=== PATIENT | female | born 1960 | race Caucasian/White ===

== ENCOUNTER 2016-07-23 00:27 | Emergency (ER) | payer SELFPAY ==
[2016-07-23] MEDS ORDERED: ASPIRIN 81 MG TABLET, CHEWABLE PO ONE (00:34)
[2016-07-23] MEDS ORDERED: NITROGLYCERIN 0.4 MG/TAB 25 TAB/BOTTLE SL PRN (00:58)
--- NOTE | 2016-07-23 01:00 | ER Document Report ---
ED General - General TRAVEL OUTSIDE OF THE [place] IN LAST 30 DAYS: No <LINDA KIRKLAND - Last Filed: 07/23/16 06:51> <NANDA ANGEL - Last Filed: 07/23/16 09:22> - General Chief Complaint: Chest Pain > 30 Stated Complaint: CHEST PAIN Notes: Patient is a pleasant 56-year-old female presents with complaint of pain in her chest. Pain is substernal and radiates to her back and her left shoulder. She says this pain feels exactly like her first heart attack. Last [place] she had was 2013. She's had 2 stents. Her last heart catheter was in 2013. She's followed by [facility] by Dr. Pierre Sherman. No vomiting. No difficulty breathing. No fevers. No abdominal pain. No weakness or numbness into the extremities. Pain started approximately 30 minutes prior to arrival. Patient says pain did start after an argument with a neighbor. (LINDA KIRKLAND) - Related Data Allergies/Adverse Reactions: azithromycin [From Zithromax] Allergy (Intermediate, Verified 03/24/11 15:33) Penicillins Allergy (Intermediate, Verified 03/24/11 15:33) narcotics Allergy (Intermediate, Uncoded 03/24/11 15:35) Past Medical History - Social History Smoking Status: Never Smoker Chew tobacco use (# tins/day): No Frequency of alcohol use: None Drug Abuse: None Family History: Reviewed & Not Pertinent Patient has suicidal ideation: No Patient has homicidal ideation: No - Past Medical History Cardiac Medical History: Reports: Hx Heart Attack, Hx Hypercholesterolemia, Hx Hypertension Pulmonary Medical History: Denies: Hx Tuberculosis Endocrine Medical History: Reports: Hx Hypothyroidism Renal/ Medical History: Reports: Hx Ovarian Cysts. Denies: Hx Peritoneal Dialysis GI Medical History: Reports: Hx Ulcer Traumatic Medical History: Reports: Hx Fractures - Right wrist. Past Surgical History: Reports: Hx Appendectomy, Hx Cardiac Catheterization, Hx Cardiac Surgery - Cardiac stents x2, 3 years ago., Hx Hysterectomy. Denies: Hx Pacemaker - Immunizations Hx Diphtheria, Pertussis, Tetanus Vaccination: No <LINDA KIRKLAND - Last Filed: 07/23/16 06:51> Review of Systems <LINDA KIRKLAND - Last Filed: 07/23/16 06:51> <NANDA ANGEL - Last Filed: 07/23/16 09:22> - Review of Systems Notes: My Normal Review Basic REVIEW OF SYSTEMS: CONSTITUTIONAL : Denies fever, chills, or sweats. Denies recent illness. EENT: Denies eye, ear, throat, or mouth pain or symptoms. Denies nasal or sinus congestion. CARDIOVASCULAR: Has chest pain RESPIRATORY: Denies cough, cold, or chest congestion. Denies shortness of breath, difficulty breathing, or wheezing. GASTROINTESTINAL: Denies abdominal pain. Denies nausea, vomiting, or diarrhea. Denies constipation. Last BM: MUSCULOSKELETAL: Denies neck or back pain or joint pain or swelling. SKIN: Denies rash or skin lesions. NEUROLOGICAL: Denies altered mental status or loss of consciousness. Denies headache. Denies weakness or paralysis or loss of use of either side. Denies problems with gait or speech. Denies sensory or motor loss. ALL OTHER SYSTEMS REVIEWED AND NEGATIVE. (LINDA KIRKLAND) Physical Exam <LINDA KIRKLAND - Last Filed: 07/23/16 06:51> <NANDA ANGEL - Last Filed: 07/23/16 09:22> - Vital signs Vitals: Temp Pulse Resp BP Pulse Ox 97.7 F 64 24 H 173/90 H 100 07/23/16 00:29 07/23/16 00:29 07/23/16 00:29 07/23/16 00:29 07/23/16 00:29 - Notes Notes: General Appearance: Well nourished, alert, cooperative, no acute distress, moderate obvious discomfort. Vitals: reviewed, See vital signs table. Head: no swelling or tenderness to the head Eyes: PERRL, EOMI, Conjuctiva clear Mouth: No decreasd moisture Neck: Supple, no neck tenderness, Lungs: No wheezing, No rales, No rhonci, No accessory muscle use, good air exchange bilaterally. Heart: Normal rate, Regular rythm, No murmur, no rub Abdomen: Normal BS, soft, No rigidity, No abdominal tenderness, No guarding, no rebound, no abdominal masses, no organomegaly Extremities: strength 5/5 in all extremities, good pulses in all extremities, no swelling or tenderness in the extremities, no edema. Skin: warm, dry, appropriate color, no rash Neuro: speech clear, oriented x 3, normal affect, responds appropriately to questions. (LINDA KIRKLAND) Course - Laboratory Result Diagrams: 07/23/16 01:00 07/23/16 01:00 <LINDA KIRKLAND - Last Filed: 07/23/16 06:51> - Laboratory Result Diagrams: 07/23/16 01:00 07/23/16 01:00 <NANDA ANGEL - Last Filed: 07/23/16 09:22> - Re-evaluation Re-evalutation: 07/23/16 01:56 Patient was given 1 sublingual nitroglycerin. Because her blood pressure to drop. Her blood pressure responded well to IV fluids. She still has lot chest pain. She is allergic to opiate medications. I'm still concerned with her chest pain and her history of cardiac disease. Her initial troponin is negative however her pain pain started 30 minutes prior to her blood drawn therefore expect her troponin to be negative regardless. I will try half an inch of Nitropaste. Will watch her closely. We'll see if this helps her pain without causing her blood pressure to drop since it would be a much smaller amount than the sublingual nitroglycerin. 07/23/16 05:46 Despite the Nitropaste patient continues to have some chest pain. She cannot have opiates. She says she is allergic to opiates as a cause difficulty breathing and swelling. Did repeat a second EKG. She has some T-wave inversions. She has no ST segment elevation or depression. I did call [facility] and spoke with the hospitalist request a repeat troponin before he accepts the patient for transfer. I will also obtain a third EKG being that patient continues to have pain that I unfortunately do not have a way of controlling at this time. 07/23/16 06:38 Patient's troponin has elevated to 0.058. We will give her Lovenox. She is a very had aspirin. I did speak again with the hospitalist, Dr. Blackman, agrees to accept the patient for transfer. We will continue the Nitropaste at a half an inch as it is helping her chest pain some. Her chest pain is now down to a level of 2 on the pain score. Her blood pressures in the low 100s systolic. I will not give her beta kaylie being that her heart rate is in the 50s. 07/23/16 06:51 Dictation of this chart was performed using voice recognition software; therefore, there may be some unintended grammatical errors. (LINDA KIRKLAND) 07/23/16 08:43 Notified of nursing staff the patient is complaining of more chest pain. Patient's blood pressure has increased. Otherwise patient looks to be resting comp W. EKG was performed showing no changes from the first no signs of acute STEMI. Patient did have a significant lowering of her blood pressure with sublingual nitroglycerin and apparently is allergic to all narcotics. At this time we will add on another half inch of Nitropaste. I will also repeat a troponin at this time. Patient scheduled to leave the ER around 9:30. 07/23/16 09:22 Patient currently stable for transport to tertiary care facility (NANDA ANGEL) - Vital Signs Vital signs: Temp Pulse Resp BP Pulse Ox 97.7 F 64 17 119/76 99 07/23/16 07:04 07/23/16 00:29 07/23/16 08:01 07/23/16 08:01 07/23/16 08:01 - Laboratory Laboratory results interpreted by me: 07/23/16 07/23/16 01:00 07:45 Carbon Dioxide 32 H Est GFR (Non-Af Amer) 55 L Calcium 10.7 H Albumin 5.3 H Urine Ascorbic Acid 20 H - EKG Interpretation by Me Additional EKG results interpreted by me: 07/23/16 00:58 EKG is reviewed and interpreted by me. EKG shows sinus bradycardia with a rate of [address] segment elevation or depression. Some T-wave flattening and inversion in the lateral leads. ND interval, QRS duration, QTC intervals are within normal range. Old EKG for comparison is from 04/27/2014. 07/23/16 03:18 EKG #2 reviewed and interpreted by me. EKG shows sinus rhythm with rate of [address] segment elevation or depression. Continued T wave flattening and inversions in the lateral leads. Your level, QRS duration, QTC intervals are within normal range. 07/23/16 03:19 07/23/16 05:59 EKG #3 is reviewed and interpreted by me. EKG shows sinus rhythm with rate of 58 bpm. EKG shows T-wave inversions in leads 1 and aVL and V6. No ST segment elevation or depression. ND interval, QRS duration are within normal range. QTc interval is borderline. (LINDA KIRKLAND) Discharge <LINDA KIRKLAND - Last Filed: 07/23/16 06:51> <NANDA ANGEL - Last Filed: 07/23/16 09:22> - Discharge Clinical Impression: Chest pain Qualifiers: Chest pain type: unspecified Qualified Code(s): R07.9 - Chest pain, unspecified Condition: Stable Disposition: COUNT INCLUDES THE [facility]
[2016-07-23 01:09] LABS: ABSOLUTE EOSINOPHILS # (AUTO) 0.2 10^3/uL (0.0-0.6); ABSOLUTE LYMPHOCYTES (AUTO) 1.9 10^3/uL (0.5-4.7); ABSOLUTE MONOCYTES (AUTO) 0.7 10^3/uL (0.1-1.4); ABSOLUTE NEUT (AUTO) 6.5 10^3/uL (1.7-8.2); BASOPHILS % (AUTO) 0.5 % (0-2); HEMATOCRIT 44.1 % (36.0-47.0); HEMOGLOBIN 14.8 g/dL (12.0-15.5); HGB HCT DIFFERENCE 0.3; LYMPHOCYTES % (AUTO) 20.9 % (13-45); MEAN CORPUSCULAR HEMOGLOBIN 29.9 pg (27.0-33.4); MEAN CORPUSCULAR HGB CONC 33.6 g/dL (32.0-36.0); MEAN CORPUSCULAR VOLUME 89 fl (80-97); MONOCYTES % (AUTO) 7.3 % (3-13); RED BLOOD COUNT 4.96 10^6/uL (3.72-5.28); RED CELL DISTRIBUTION WIDTH 13.3 % (11.5-14.0); SEGMENTED NEUTROPHILS % (AUTO) 69.3 % (42-78); WHITE BLOOD COUNT 9.3 10^3/uL (4.0-10.5)
[2016-07-23] MEDS ORDERED: NORMAL SALINE 1000 ML 1,000 ML IV ONE (01:21)
[2016-07-23 01:29] LABS: ALANINE AMINOTRANSFERASE 36 U/L (9-52); ALBUMIN 5.3 g/dL (3.5-5.0); ALKALINE PHOSPHATASE 72 U/L (38-126); ANION GAP 14 (5-19); ASPARTATE AMINO TRANSFERASE 23 U/L (14-36); BILIRUBIN,TOTAL 0.9 mg/dL (0.2-1.3); BLOOD UREA NITROGEN 20 mg/dL (7-20); CALCIUM 10.7 mg/dL (8.4-10.2); CARBON DIOXIDE 32 mmol/L (22-30); CHLORIDE 99 mmol/L (98-107); CREATINE KINASE 85 U/L (30-135); CREATININE RESULT 1.04 mg/dL (0.52-1.25); GLUCOSE 101 mg/dL (75-110); POTASSIUM 4.1 mmol/L (3.6-5.0); SODIUM 144.6 mmol/L (137-145); TOTAL PROTEIN 7.8 g/dL (6.3-8.2)
[2016-07-23 01:41] LABS: TROPONIN I < 0.012 ng/mL
[2016-07-23] MEDS ORDERED: NITROGLYCERIN 2% OINTMENT 1 GM PACKET TP ONE ×2 (01:55→08:37)
[2016-07-23] MEDS ORDERED: ENOXAPARIN SODIUM INJ 80 MG/0.8 ML DISP.SYRIN SUBCUT SCH (06:45)
[2016-07-23] MEDS ORDERED: CLOPIDOGREL BISULFATE 75 MG TABLET PO ONE (07:05)
[2016-07-23] MEDS ORDERED: ONDANSETRON HCL INJ/PF 4 MG/2 ML SDV IV PRN (08:34)
[2016-07-23] MEDS ORDERED: MORPHINE SULFATE 10 MG/ML INJ IV PRN (08:34)
[2016-07-23 09:07] LABS: APPEARANCE,URINE CLEAR; BILIRUBIN,URINE NEGATIVE (NEGATIVE); GLUCOSE, URINE NEGATIVE (NEGATIVE); KETONES,URINE NEGATIVE (NEGATIVE); LEUKOCYTE ESTERASE,URINE NEGATIVE (NEGATIVE); NITRITE,URINE NEGATIVE (NEGATIVE); PROTEIN,URINE NEGATIVE (NEGATIVE); URINE SPECIFIC GRAVITY 1.006; UROBILINOGEN,URINE NEGATIVE mg/dL (<2.0)
[2016-07-23 09:26] VITALS: BP 160/72
--- NOTE | 2016-07-23 20:16 | EKG REPORT ---
SEVERITY:- ABNORMAL ECG - SINUS BRADYCARDIA NONSPECIFIC T ABNORMALITIES, LATERAL LEADS : Confirmed by: Joel Banks 23-Jul-2016 20:15:49
--- NOTE | 2016-07-23 20:16 | EKG REPORT ---
SEVERITY:- ABNORMAL ECG - SINUS RHYTHM BORDERLINE LEFT AXIS DEVIATION ABNORMAL T, CONSIDER ISCHEMIA, LATERAL LEADS : Confirmed by: Joel Banks 23-Jul-2016 20:16:00
--- NOTE | 2016-07-23 20:17 | EKG REPORT ---
SEVERITY:- ABNORMAL ECG - SINUS RHYTHM LEFT AXIS DEVIATION ABNORMAL T, CONSIDER ISCHEMIA, LATERAL LEADS : Confirmed by: Joel Banks 23-Jul-2016 20:16:09
--- NOTE | 2016-07-23 20:17 | EKG REPORT ---
SEVERITY:- ABNORMAL ECG - SINUS RHYTHM BORDERLINE LEFT AXIS DEVIATION NONSPECIFIC T ABNORMALITIES, ANT-LAT LEADS : Confirmed by: Joel Banks 23-Jul-2016 20:16:18
== END 2016-07-23 09:35 | disposition short-term general hospital (02) ==
LOC: ER 00:27
DX: R07.9 Chest pain, unspecified (principal); I25.2 Old myocardial infarction
CPT/HCPCS: 93005 ×2; 99285; 96372; 96360; 96361; 36415; 82553; 82550; 85025; 80053; 81001; 84484; 71010; 93010; J7030

== ENCOUNTER 2017-09-16 23:08 | Emergency (ER) | payer BC, OTHER ==
[2017-09-17 00:01] VITALS: BP 133/76
--- NOTE | 2017-09-17 00:05 | RADIOLOGY REPORT (SQ) ---
EXAM DESCRIPTION: KNEE RIGHT 4 VIEWS CLINICAL HISTORY: rt knee pain COMPARISON: None. FINDINGS: 4 views of the right knee. Osteopenia. No acute fracture or dislocation. No definite joint effusion. IMPRESSION: 1. No acute fracture or dislocation.
[2017-09-17] MEDS ORDERED: ACETAMINOPHEN 325 MG TABLET PO ONE (00:06)
--- NOTE | 2017-09-17 00:25 | ER Document Report ---
HPI - HPI Pain Level: 5 Notes: Patient is a 57-year-old female with no significant past medical history who presents to the ED complaining of right anterior knee pain status post injury prior to arrival. Patient states that she tripped over her cat and landed on her knee. Patient states that she has had pain since then with some mild swelling. Patient states that she does not want to flex her knee because of the pain. The pain does not radiate. Denies any smoking or IV drug use. Denies any headache, fever, head injury, neck pain, URI, sore throat, chest pain , palpitations, syncope, cough, shortness of breath, wheeze, dyspnea, abdominal pain, nausea/vomiting/diarrhea, urinary retention, dysuria, hematuria, loss of control of bowel or bladder, numbness/tingling, muscle paralysis/weakness, or rash. - ROS Systems Reviewed and Negative: Yes All other systems reviewed and negative - NEURO Neurology: DENIES: Headache, Weakness, Vision blurred, Dizzinesss / Vertigo - REPRODUCTIVE Reproductive: DENIES: : - MUSCULOSKELETAL Musculoskeletal: REPORTS: Extremity pain - R knee Past Medical History - Social History Smoking Status: Never Smoker Family History: Reviewed & Not Pertinent Patient has suicidal ideation: No Patient has homicidal ideation: No - Past Medical History Cardiac Medical History: Reports: Hx Coronary Artery Disease, Hx Heart Attack - [place] x6, HAS 2 STENTS, Hx Hypercholesterolemia, Hx Hypertension Pulmonary Medical History: Reports: Hx Pneumonia Denies: Hx Asthma, Hx Bronchitis, Hx COPD, Hx Tuberculosis Neurological Medical History: Denies: Hx Cerebrovascular Accident, Hx Seizures Endocrine Medical History: Reports: Hx Hypothyroidism Renal/ Medical History: Reports: Hx Ovarian Cysts. Denies: Hx Peritoneal Dialysis GI Medical History: Reports: Hx Ulcer Musculoskeltal Medical History: Denies Hx Arthritis Traumatic Medical History: Reports: Hx Fractures - Right wrist. Past Surgical History: Reports: Hx Appendectomy, Hx Cardiac Catheterization, Hx Cardiac Surgery - Cardiac stents x2, 3 years ago., Hx Hysterectomy. Denies: Hx Pacemaker - Immunizations Hx Diphtheria, Pertussis, Tetanus Vaccination: Yes Vertical Provider Document - CONSTITUTIONAL Agree With Documented VS: Yes Notes: PHYSICAL EXAMINATION: GENERAL: Well-appearing, well-nourished and in no acute distress. LUNGS: Breath sounds clear to auscultation bilaterally and equal. No wheezes rales or rhonchi. HEART: Regular rate and rhythm without murmurs, rubs, gallops. Musculoskeletal: Rt knee: + mild anterior swelling. LROM to passive/active flexion. Strength 5+/5. N/V intact distal. + tenderness to the anterior knee to palpation. Could not adequately assess ligaments and Joyce due to patient resistance and not wanting to flex the knee. Extremities: No cyanosis, clubbing, or edema b/l. Peripheral pulses 2+. Capillary refill less than 3 seconds. NEUROLOGICAL: Normal speech, limping gait. Normal sensory, motor exams PSYCH: Normal mood, normal affect. SKIN: Warm, Dry, normal turgor, no rashes or lesions noted. - INFECTION CONTROL TRAVEL OUTSIDE OF THE [place] IN LAST 30 DAYS: No Course - Re-evaluation Re-evalutation: 09/17/17 00:31 Patient is an afebrile, well-hydrated, 57-year-old female who presents to the ED with right knee pain, suspect contusion. Vitals are acceptable. PE is otherwise unremarkable for any neurovascular compromise, obvious tendon/ ligament rupture, obvious fracture/dislocation, septic joint. X-ray was unremarkable for any acute pathology. Knee immobilizer was placed and crutches provided. Patient given Tylenol p.o. I will send her home with a prescription for naproxen. Conservative measures otherwise for symptoms. Recheck with your PCM in 3-5 days. Consider consult with orthopedic/physical therapy. Return to the ED with any worsening/concerning symptoms otherwise as reviewed discharge. Patient is in agreement. - Vital Signs Vital signs: Temp Pulse Resp BP Pulse Ox 99.3 F 66 16 133/76 H 97 09/17/17 00:01 09/17/17 00:01 09/17/17 00:01 09/17/17 00:01 09/17/17 00:01 Discharge - Discharge Clinical Impression: Right knee pain Qualifiers: Chronicity: acute Qualified Code(s): M25.561 - Pain in right knee Condition: Stable Disposition: HOME, SELF-CARE Instructions: Use of Crutches ([facility]), Ice & Elevation ([facility]), Knee Immobilizing Splint ([facility]) Additional Instructions: Rest, Ice, Compression, Elevation Use crutches/splint as directed Tylenol/ibuprofen as needed Light stretches daily Strength exercises as able Moist heat and massage may help F/u with your PCP in 3-5 days for a recheck Consider consult(s) with Orthopedics/physical therapy for ongoing/worsening symptoms Return to the ED with any worsening symptoms and/or development of fever, headache, chest pain, palpitations, syncope, shortness of breath, trouble breathing, abdominal pain, n/v/d, muscle weakness/paralysis, numbness/tingling, swelling, redness, or other worsening symptoms that are concerning to you. Prescriptions: Naproxen 500 mg PO BID PRN #30 tablet PRN Reason: Forms: Elevated Blood Pressure Referrals: [facility] ([facility]) [Provider Group] - Follow up as needed
== END 2017-09-17 00:42 | disposition home or self-care (01) ==
LOC: ER 23:08
DX: M25.561 Pain in right knee (principal); E03.9 Hypothyroidism, unspecified; I25.10 Atherosclerotic heart disease of native coronary artery without angina pectoris; I10 Essential (primary) hypertension; E78.00 Pure hypercholesterolemia, unspecified; I25.2 Old myocardial infarction
CPT/HCPCS: 99283; 73564; L1830

== ENCOUNTER 2017-10-24 04:07 | Observation (INO) | payer BC ==
[2017-10-24 04:47] LABS: ABSOLUTE EOSINOPHILS # (AUTO) 0.2 10^3/uL (0.0-0.6); ABSOLUTE LYMPHOCYTES (AUTO) 1.5 10^3/uL (0.5-4.7); ABSOLUTE MONOCYTES (AUTO) 0.5 10^3/uL (0.1-1.4); ABSOLUTE NEUT (AUTO) 3.8 10^3/uL (1.7-8.2); BASOPHILS % (AUTO) 0.4 % (0-2); EOSINOPHILS % (AUTO) 2.8 % (0-6); HEMATOCRIT 41.2 % (36.0-47.0); HEMOGLOBIN 14.2 g/dL (12.0-15.5); LYMPHOCYTES % (AUTO) 24.7 % (13-45); MEAN CORPUSCULAR HGB CONC 34.4 g/dL (32.0-36.0); MEAN CORPUSCULAR VOLUME 87 fl (80-97); MONOCYTES % (AUTO) 8.9 % (3-13); PLATELET COUNT 195 10^3/uL (150-450); RED BLOOD COUNT 4.72 10^6/uL (3.72-5.28); SEGMENTED NEUTROPHILS % (AUTO) 63.2 % (42-78); TOTAL CELLS COUNTED % (AUTO) 100 %; WHITE BLOOD COUNT 5.9 10^3/uL (4.0-10.5)
[2017-10-24] MEDS ORDERED: ASPIRIN 325 MG TABLET PO ONE (04:47)
--- NOTE | 2017-10-24 04:49 | ER Document Report ---
Doctor's Note Notes: 10/24/17 04:47 I performed a quick triage evaluation of the patient. Patient is a pleasant 57- year-old female with a history of previous NV. She has 2 stents. 2 stents were placed 6 years ago. She has had 3 non-STEMI since then but all her heart cath have remained clear and she has not required any further stenting since then. She said that she had chest pain that was substernal today. Nonradiating. Mostly over the lower portion of the chest. But at times gets the ER the pain resolved. She says she has been under a lot of stress recently because her or is being sold and she is unsure if she will have a job in the next coming weeks. She has no other complaints at this time and currently feels well. Last aspirin was yesterday morning. On exam patient looks comfortable. No murmur on heart auscultation. Lung sounds are clear. No edema in extremities. Peripheral pulses are equal. EKG does not show any ischemic changes. Dictation of this chart was performed using voice recognition software; therefore, there may be some unintended grammatical errors. 10/24/17 04:48
--- NOTE | 2017-10-24 04:49 | RADIOLOGY REPORT (SQ) ---
EXAM DESCRIPTION: XR CHEST 1 VIEW COMPLETED DATE/TME: 10/24/2017 04:23 CLINICAL HISTORY: chest pain COMPARISON: 07/23/2016 FINDINGS: Single frontal view of the chest. The cardiomediastinal silhouette has normal size and contour. No consolidation, pneumothorax, or pleural effusion. No displaced rib fractures identified. Leads overlie the chest. Upper abdominal soft tissues are unremarkable. IMPRESSION: 1. No acute pulmonary process identified.
[2017-10-24 05:04] LABS: ALANINE AMINOTRANSFERASE 23 U/L (9-52); ALBUMIN 4.4 g/dL (3.5-5.0); ALKALINE PHOSPHATASE 63 U/L (38-126); ANION GAP 12 (5-19); ASPARTATE AMINO TRANSFERASE 16 U/L (14-36); BILIRUBIN,DIRECT 0.3 mg/dL (0.0-0.4); BILIRUBIN,TOTAL 0.5 mg/dL (0.2-1.3); BLOOD UREA NITROGEN 20 mg/dL (7-20); CALCIUM 9.9 mg/dL (8.4-10.2); CARBON DIOXIDE 29 mmol/L (22-30); CHLORIDE 106 mmol/L (98-107); GLUCOSE 103 mg/dL (75-110); POTASSIUM 4.1 mmol/L (3.6-5.0); SODIUM 147.2 mmol/L (137-145); TOTAL PROTEIN 6.8 g/dL (6.3-8.2)
[2017-10-24] MEDS ORDERED: LORAZEPAM INJ 2 MG/1 ML VIAL IV ONE (05:25)
--- NOTE | 2017-10-24 05:26 | ER Document Report ---
ED General - General Chief Complaint: Chest Pain Stated Complaint: CHEST PAIN Time Seen by Provider: 10/24/17 04:47 Notes: Patient is a pleasant 57-year-old female previous history of VT. She has a history of 2 stents that were placed 6 years ago. Since then she has had 3 non- STEMI's. Most recently being May of last year. She says that recently she is under some stress because she works for is being bought out she is unsure if she will continue to have a job or not. Tonight she is having some substernal lower chest pain. It resolved prior to coming to the ER. No difficulty breathing. No fevers. No vomiting. No recent leg pain or leg swelling. She does take aspirin. Last dose of aspirin was yesterday morning. No other complaints at this time. TRAVEL OUTSIDE OF THE [place] IN LAST 30 DAYS: No - Related Data Allergies/Adverse Reactions: azithromycin [From Zithromax] Allergy (Intermediate, Verified 09/16/17 23:19) Penicillins Allergy (Intermediate, Verified 09/16/17 23:19) narcotics Allergy (Intermediate, Uncoded 09/16/17 23:19) Past Medical History - Social History Smoking Status: Never Smoker Frequency of alcohol use: None Drug Abuse: None Family History: Reviewed & Not Pertinent - Past Medical History Cardiac Medical History: Reports: Hx Coronary Artery Disease, Hx Heart Attack - [place] x6, HAS 2 STENTS, Hx Hypercholesterolemia, Hx Hypertension Pulmonary Medical History: Reports: Hx Pneumonia Denies: Hx Asthma, Hx Bronchitis, Hx COPD, Hx Tuberculosis Neurological Medical History: Denies: Hx Cerebrovascular Accident, Hx Seizures Endocrine Medical History: Reports: Hx Hypothyroidism Renal/ Medical History: Reports: Hx Ovarian Cysts. Denies: Hx Peritoneal Dialysis GI Medical History: Reports: Hx Ulcer Musculoskeltal Medical History: Denies Hx Arthritis Traumatic Medical History: Reports: Hx Fractures - Right wrist. Past Surgical History: Reports: Hx Appendectomy, Hx Cardiac Catheterization, Hx Cardiac Surgery - Cardiac stents x2, 3 years ago., Hx Hysterectomy. Denies: Hx Pacemaker - Immunizations Hx Diphtheria, Pertussis, Tetanus Vaccination: Yes Review of Systems - Review of Systems Notes: My Normal Review Basic REVIEW OF SYSTEMS: CONSTITUTIONAL : Denies fever, chills, or sweats. Denies recent illness. EENT: Denies eye, ear, throat, or mouth pain or symptoms. Denies nasal or sinus congestion. CARDIOVASCULAR: chest pain RESPIRATORY: Denies cough, cold, or chest congestion. Denies shortness of breath, difficulty breathing, or wheezing. GASTROINTESTINAL: Denies abdominal pain. Denies nausea, vomiting, or diarrhea. GENITOURINARY: Denies difficulty urinating, painful urination, burning, frequency, or blood in urine. MUSCULOSKELETAL: Denies neck or back pain or joint pain or swelling. SKIN: Denies rash or skin lesions. NEUROLOGICAL: Denies altered mental status or loss of consciousness. Denies headache. Denies weakness or paralysis or loss of use of either side. Denies problems with gait or speech. Denies sensory or motor loss. PSYCHIATRIC: Some recent stress. ALL OTHER SYSTEMS REVIEWED AND NEGATIVE. Physical Exam - Vital signs Vitals: Temp Pulse Resp BP Pulse Ox 97.9 F 63 18 165/81 H 98 10/24/17 04:16 10/24/17 04:16 10/24/17 04:16 10/24/17 04:16 10/24/17 04:16 - Notes Notes: General Appearance: Well nourished, alert, cooperative, no acute distress, no obvious discomfort. Well-appearing. Vitals: reviewed, See vital signs table. Head: no swelling or tenderness to the head Eyes: PERRL, EOMI, Conjuctiva clear Mouth: No decreasd moisture Throat: No tonsillar inflammation, No airway obstruction, No lymphadenopathy Neck: Supple, no neck tenderness, No thyromegaly Chest wall: No reproducible pain to palpation of chest wall. Lungs: No wheezing, No rales, No rhonci, No accessory muscle use, good air exchange bilaterally. Heart: Normal rate, Regular rythm, No murmur, no rub Abdomen: Normal BS, soft, No rigidity, No abdominal tenderness, No guarding, no rebound, no abdominal masses, no organomegaly Extremities: strength 5/5 in all extremities, good pulses in all extremities, no swelling or tenderness in the extremities, no edema. Skin: warm, dry, appropriate color, no rash Neuro: speech clear, oriented x 3, normal affect, responds appropriately to questions. Course - Re-evaluation Re-evalutation: 10/24/17 05:52 Patient's initial troponin and EKG are negative. She can continue to be chest pain-free. She does admit to lip anxiety and therefore given her small dose of Ativan. I suspect the most likely her chest pain could be stress related however she said that she did have an an STEMI in the past related to stress. Due to her previous history of VT and risk factors I think it is appropriate to admit her for observation. I did speak with Dr. Alvarenga who agrees to accept the patient for admission. Dictation of this chart was performed using voice recognition software; therefore, there may be some unintended grammatical errors. - Vital Signs Vital signs: Temp Pulse Resp BP Pulse Ox 97.9 F 63 18 165/81 H 98 10/24/17 04:16 10/24/17 04:16 10/24/17 04:16 10/24/17 04:16 10/24/17 04:16 - Laboratory Result Diagrams: 10/24/17 04:27 10/24/17 04:27 Laboratory results interpreted by me: 10/24/17 04:27 Sodium 147.2 H Discharge - Discharge Clinical Impression: Chest pain Qualifiers: Chest pain type: unspecified Qualified Code(s): R07.9 - Chest pain, unspecified Condition: Stable Disposition: ADMITTED OBSERVATION Admitting Provider: Hospitalist Unit Admitted: Telemetry Referrals: JOHN POOLE FNP [Primary Care Provider] - Follow up as needed
[2017-10-24] MEDS ORDERED: DEXTROSE 40% GEL 15 GM TUBE PO PRN ×2 (06:02)
[2017-10-24] MEDS ORDERED: DEXTROSE 50%-WATER 25 GM/50 ML DISP.SYRIN IV PRN ×2 (06:02)
[2017-10-24] MEDS ORDERED: OXYCODONE-ACETAMINOPHEN 5-325 MG TABLET PO PRN (06:02)
[2017-10-24] MEDS ORDERED: GLUCAGON,HUMAN RECOMB 1 MG INJ SUBCUT PRN (06:02)
[2017-10-24] MEDS ORDERED: ONDANSETRON 4 MG TAB.RAPDIS PO PRN (06:02)
[2017-10-24] MEDS ORDERED: MORPHINE SULFATE 10 MG/ML INJ IV PRN (06:08)
--- NOTE | 2017-10-24 06:16 | PDOC H&P ---
History of Present Illness Admission Date/PCP: 10/24/17 05:57 TAYA MEDEROS History of Present Illness: ELENO LOOMIS is a 57 year old female patient with past medical history of hypertension, hypothyroidism and coronary artery disease status post 3 stent placement presents with chief complaint of chest pain. Patient claims she wakes up with sharp nonradiating chest pain at about 2 AM this morning. Of note patient had her first attack at the age of 50 and also her mom had heart attack at the age of 50. Her stents were placed 6 years ago. She had cardiac cut in July 2016 and reportedly was negative. She has associated mild shortness of breath. She denies any chills, fever, trauma to her chest, cough, palpitation, diaphoresis, nausea, vomiting, abdominal pain, diarrhea or urinary complaints. No headache dizziness or blurring of vision. Past Medical History Cardiac Medical History: Reports: Coronary Artery Disease, Myocardial Infarction - [place] x6, HAS 2 STENTS, Hyperlipidema, Hypertension Pulmonary Medical History: Reports: Pneumonia Denies: Asthma, Bronchitis, Chronic Obstructive Pulmonary Disease (COPD), Tuberculosis Neurological Medical History: Denies: Seizures Endocrine Medical History: Reports: Hypothyroidism Musculoskeltal Medical History: Denies: Arthritis Hematology: Denies: Anemia Past Surgical History Past Surgical History: Reports: Appendectomy, Cardiac Catheterization, Hysterectomy Denies: Pacemaker Social History Smoking Status: Former Smoker Frequency of Alcohol Use: None Hx Recreational Drug Use: No Drugs: None Hx Prescription Drug Abuse: No - Advance Directive Resuscitation Status: Full Code Family History Family History: Reviewed & Not Pertinent, CAD, Hypertension Parental Family History Reviewed: Yes Children Family History Reviewed: Yes Sibling(s) Family History Reviewed.: Yes Medication/Allergy Home Medications: Aspirin [Aspirin 81 mg Chewable Tablet] 81 mg PO DAILY 01/16/14 Isosorbide Mononitrate [Isosorbide Mononitrate ER] 30 mg PO DAILY 01/16/14 Levothyroxine Sodium 75 mcg PO DAILY 01/16/14 Lisinopril 20 mg PO DAILY 01/16/14 Magnesium Oxide [Magnesium] 400 mg PO DAILY 01/16/14 Metoprolol Tartrate [Lopressor 25 mg Tablet] 12.5 mg PO Q12 01/16/14 Pravastatin Sodium [Pravachol] 40 mg PO DAILY 01/16/14 Albuterol Sulfate [Ventolin 0.083% Neb 2.5 mg/3 ml Ampul] 1 vial NEB Q6 PRN Clopidogrel Bisulfate [Clopidogrel] 75 mg PO DAILY 12/04/16 Naproxen 500 mg PO BID PRN #30 tablet 09/17/17 Allergies/Adverse Reactions: azithromycin [From Zithromax] Allergy (Intermediate, Verified 09/16/17 23:19) Penicillins Allergy (Intermediate, Verified 09/16/17 23:19) narcotics Allergy (Intermediate, Uncoded 09/16/17 23:19) Review of Systems Constitutional: PRESENT: as per HPI Eyes: PRESENT: as per HPI Ears: PRESENT: as per HPI Breasts: PRESENT: as per HPI Respiratory: PRESENT: as per HPI Gastrointestinal: PRESENT: as per HPI Musculoskeletal: PRESENT: as per HPI Neurological: PRESENT: as per HPI Psychiatric: PRESENT: as per HPI Physical Exam Vital Signs: Temp Pulse Resp BP Pulse Ox 97.9 F 63 18 165/81 H 98 10/24/17 04:16 10/24/17 04:16 10/24/17 04:16 10/24/17 04:16 10/24/17 04:16 General appearance: PRESENT: no acute distress, well-developed, well-nourished Head exam: PRESENT: atraumatic, normocephalic Eye exam: PRESENT: conjunctiva pink, EOMI, PERRLA. ABSENT: scleral icterus Neck exam: ABSENT: carotid bruit, JVD, lymphadenopathy, thyromegaly Respiratory exam: PRESENT: clear to auscultation myra. ABSENT: rales, rhonchi, wheezes Cardiovascular exam: PRESENT: RRR. ABSENT: diastolic murmur, rubs, systolic murmur GI/Abdominal exam: PRESENT: normal bowel sounds, soft. ABSENT: distended, guarding, mass, organolmegaly, rebound, tenderness Extremities exam: PRESENT: full ROM. ABSENT: calf tenderness, clubbing, pedal edema Neurological exam: PRESENT: alert, awake, oriented to person, oriented to place , oriented to time, oriented to situation, CN II-XII grossly intact. ABSENT: motor sensory deficit Psychiatric exam: PRESENT: appropriate affect, normal mood. ABSENT: homicidal ideation, suicidal ideation Results Impressions: Chest X-Ray 10/24/17 04:23 IMPRESSION: 1. No acute pulmonary process identified. Assessment & Plan - Diagnosis (1) Chest pain Qualifiers: Chest pain type: unspecified Qualified Code(s): R07.9 - Chest pain, unspecified Is this a current diagnosis for this admission?: Yes Plan: Patient given aspirin at the ER, We will trend troponin and cardiac stress test in a.m. (2) Coronary artery disease Qualifiers: Coronary Disease-Associated Artery/Lesion type: paimiut artery Is this a current diagnosis for this admission?: Yes Plan: Status post stent placement. Patient might have unstable angina. (3) Hypertension Qualifiers: Hypertension type: essential hypertension Qualified Code(s): I10 - Essential (primary) hypertension Is this a current diagnosis for this admission?: Yes Plan: Medications (4) Hyperlipidemia Qualifiers: Hyperlipidemia type: unspecified Qualified Code(s): E78.5 - Hyperlipidemia , unspecified Is this a current diagnosis for this admission?: Yes Plan: Continue her home medications
[2017-10-24] MEDS: LANSOPRAZOLE 30 MG TAB.RAP.DR PO SCH (06:33)
[2017-10-24] MEDS ORDERED: LEVOTHYROXINE SODIUM 0.075 MG TABLET PO ONE (07:00)
[2017-10-24] MEDS: MAGNESIUM OXIDE 400 MG TABLET PO SCH (09:49)
[2017-10-24] MEDS: METOPROLOL TARTRATE 25 MG TABLET PO SCH ×2 (09:50→21:44)
[2017-10-24] MEDS: ENOXAPARIN SODIUM INJ 40 MG/0.4 ML DISP.SYRIN SUBCUT SCH (09:50)
[2017-10-24] MEDS: ASPIRIN 81 MG TABLET, CHEWABLE PO SCH (09:50)
[2017-10-24] MEDS: LISINOPRIL 10 MG TABLET PO SCH (09:50)
[2017-10-24] MEDS ORDERED: KETOROLAC TROMETHAMINE INJ/PF 30 MG/1 ML SDV IV PRN (12:43)
[2017-10-24] MEDS ORDERED: ACETAMINOPHEN 325 MG TABLET PO PRN (12:44)
--- NOTE | 2017-10-24 17:19 | Progress Note ---
Provider Note Provider Note: Patient admitted this AM. Continues to complain of chest pain. EKG wnl and troponin negative * 3. Was suppose to have stress test today however was postponed until tomorrow, 10/25. Given history of allergies to multiple opioids, ordered Toradol IV 15mg q6 hours * 3 days for pain control. Re-started home medications. OK to eat and will make NPO aftermidnight. Stress test tomorrow. If negative, will d/c to home.
[2017-10-24] MEDS ORDERED: LORAZEPAM 1 MG TABLET PO ONE (18:38)
[2017-10-24] MEDS: ISOSORBIDE MONONITRATE 30 MG TAB.ER.24H PO SCH (21:43)
[2017-10-24] MEDS ORDERED: ATORVASTATIN CALCIUM 10 MG TABLET PO SCH (22:00)
[2017-10-25] MEDS: LANSOPRAZOLE 30 MG TAB.RAP.DR PO SCH (05:49)
[2017-10-25] MEDS ORDERED: LEVOTHYROXINE SODIUM 0.075 MG TABLET PO SCH (06:00)
--- NOTE | 2017-10-25 07:34 | EKG REPORT ---
SEVERITY:- BORDERLINE ECG - SINUS RHYTHM BORDERLINE LEFT AXIS DEVIATION NONSPECIFIC ST-T CHANGES LATERAL LEADS, MIN CHANGE : Confirmed by: Td Roth MD 25-Oct-2017 07:33:30
[2017-10-25] MEDS ORDERED: LORAZEPAM 1 MG TABLET PO ONE (08:45)
[2017-10-25] MEDS ORDERED: CLOPIDOGREL BISULFATE 75 MG TABLET PO SCH (10:00)
[2017-10-25] MEDS ORDERED: AMLODIPINE BESYLATE 5 MG TABLET PO SCH (10:00)
[2017-10-25] MEDS ORDERED: (PENDING PHARMACY ID) (Lansoprazole [Prevacid] 15 MG) PO SCH (10:00)
[2017-10-25] MEDS: METOPROLOL TARTRATE 25 MG TABLET PO SCH (10:54)
[2017-10-25] MEDS: MAGNESIUM OXIDE 400 MG TABLET PO SCH (10:54)
[2017-10-25] MEDS: ISOSORBIDE MONONITRATE 30 MG TAB.ER.24H PO SCH (10:58)
[2017-10-25] MEDS: LISINOPRIL 10 MG TABLET PO SCH (10:58)
[2017-10-25] MEDS: ENOXAPARIN SODIUM INJ 40 MG/0.4 ML DISP.SYRIN SUBCUT SCH (10:58)
[2017-10-25] MEDS: ASPIRIN 81 MG TABLET, CHEWABLE PO SCH (10:58)
[2017-10-25] MEDS ORDERED: REGADENOSON INJ 0.4 MG/5 ML DISP.SYRIN IV ONE (13:53)
--- NOTE | 2017-10-25 15:05 | PDOC DISCHARGE SUMMARY ---
General - Admit/Disc Date/PCP Admission Date/Primary Care Provider: 10/24/17 05:57 JOHN MCDONALDVANE POOLE, [facility] Discharge Date: 10/25/17 - Discharge Diagnosis (1) Chest pain Is this a current diagnosis for this admission?: Yes Summary: Presenting issue. EKG wnl, troponins negative * 3, and stress test on 10/25 negative per discussion with cardiology (Dr. Estrella). These data points suggest that chest pain is not primary cardiac problem. 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 She required Ativan on multiple occasions during this hospitalization for anxiety, suggesting that chest pain may partly (if not completely) be driven by anxiety. Alternate etiologies for CP should also be considered and can be further worked up by her PCP and/or advertising internship as outpatient. (2) Coronary artery disease Is this a current diagnosis for this admission?: Yes Summary: Patient has known CAD with multiple nSTEMi's and 2 cardiac stents. - She is on appropriate outpatient therapy including ASA, plavix, ZOILA-i - She has been on metoprolol however noted to have bradycardia. I am holding her metoprolol at discharge. (3) Hyperlipidemia Is this a current diagnosis for this admission?: Yes Summary: Continue home statin at discharge. (4) Hypertension Is this a current diagnosis for this admission?: Yes Summary: Continue home regimen, except for lopressor. Monitor BP's at home. (5) Bradycardia Is this a current diagnosis for this admission?: Yes Summary: Noted on tele. Asymptomatic. Holding Metoprolol per above. - Additional Information Resuscitation Status: Full Code Discharge Diet: Cardiac Discharge Activity: Activity As Tolerated Home Medications: Aspirin [Aspirin 81 mg Chewable Tablet] 81 mg PO DAILY 01/16/14 Isosorbide Mononitrate [Isosorbide Mononitrate ER] 30 mg PO BID 01/16/14 Lisinopril 20 mg PO DAILY 01/16/14 Magnesium Oxide [Magnesium] 400 mg PO DAILY 01/16/14 Clopidogrel Bisulfate [Clopidogrel] 75 mg PO DAILY 12/04/16 Amlodipine Besylate [Norvasc 5 mg Tablet] 5 mg PO DAILY 10/24/17 Ascorbic Acid [Vitamin C 500 mg Tablet] 1,000 mg PO BID 10/24/17 Lansoprazole [Prevacid] 15 mg PO DAILY 10/24/17 Levothyroxine Sodium [Synthroid 0.088 mg Tablet] 88 mcg PO DAILY 10/24/17 Tumeric 500mg 500 mg PO BID 10/24/17 History of Present Illness History of Present Illness: ELENO LOOMIS is a 57 year old female with PMH fof hypertension, hypothyroidism and coronary artery disease s/p 2 stent placement presents who was admitted for chief complaint of chest pain. Patient claims she wakes up with sharp nonradiating chest pain at about 2 AM this morning. Of note patient had her first attack at the age of 50 and also her mom had heart attack at the age of 50. Her stents were placed 6 years ago. She had cardiac cut in July 2016 and reportedly was negative. She has associated mild shortness of breath. She denies any chills, fever, trauma to her chest, cough, palpitation, diaphoresis, nausea, vomiting, abdominal pain, diarrhea or urinary complaints. No headache dizziness or blurring of vision. Admitted to hospitalist service. Physical Exam Vital Signs: Temp Pulse Resp BP Pulse Ox 98.8 F 59 L 14 133/63 H 99 10/25/17 10:46 10/25/17 10:46 10/25/17 10:46 10/25/17 10:46 10/25/17 10:46 Intake & Output 10/24/17 10/25/17 10/26/17 06:59 06:59 06:59 Intake Total 20 Balance 20 Weight 68.7 kg General appearance: PRESENT: no acute distress, cooperative, well-developed, well-nourished Head exam: PRESENT: normocephalic Mouth exam: PRESENT: moist Respiratory exam: PRESENT: unlabored Cardiovascular exam: PRESENT: +S1, +S2. ABSENT: tachycardia GI/Abdominal exam: PRESENT: soft. ABSENT: tenderness Musculoskeletal exam: PRESENT: ambulatory Neurological exam: PRESENT: alert, awake, CN II-XII grossly intact Psychiatric exam: PRESENT: anxious - but reorientable Skin exam: PRESENT: dry, warm Results Laboratory Results: 10/24/17 10/24/17 08:24 12:48 Troponin I < 0.012 < 0.012 Impressions: Chest X-Ray 10/24/17 04:23 IMPRESSION: 1. No acute pulmonary process identified. Qualifiers - * PATIENT BEING DISCHARGED WITH ANY OF THE FOLLOWING DIAGNOSIS: No Plan Time Spent: Less than 30 Minutes
[2017-10-25 15:27] VITALS: BP 158/70
--- NOTE | 2017-10-25 21:05 | DRAGON STRESS TEST REPORT ---
Intravenous Lexiscan Cardiolite stress test using single photon emmision computerized tomography. Date of procedure: 10/12/2017. Ordering Provider: Dr. Lopez. Patient's status : In Patient. Indication: Chest pain. Patient with a history of coronary artery disease, history of stents in the left anterior descending artery and stress obtuse marginal branch a few years ago. Coronary risk factors: Age, diabetes mellitus, hypertension, family history of coronary artery disease and dyslipidemia. Resting EKG: Sinus Rhythm. Minor T wave changes in leads I and aVL. Stress EKG: No changes of ischemia. The patient no chest pain or discomfort, and there were no arrhythmias seen. Reason for termination: Protocol. Conclusions: Normal EKG and hemodynamic response to IV Lexiscan. Nuclear data: At rest the patient was given 10.65 millicuries of technetium 99m sestamibi injected intravenously. As per protocol rest non gated SPECT images were obtained. Subsequently the patient was given intravenous Lexiscan at a dose of 0.4 mg in 5 mL intravenously, followed by flush with normal saline. Subsequently the stress dose of 30.2 millicuries of technetium 99m sestamibi was injected intravenously. As per protocol stress gated images were obtained. Nuclear interpretation: Review of images showed that there was liver and bowel contamination artifact. But in spite of this all segments of the myocardium had normal perfusion at rest , and normal perfusion post stress with IV Lexiscan. All segments of the myocardium had normal motion, contraction, and thickening by gated study. T. I D. ratio was normal at 0.94. Computer read rest, and stress left ventricular ejection fraction were 66 %, and 66 %, respectively. Conclusion: 1. There is no scintigraphic evidence of Lexiscan induced myocardial ischemia. 2. There is no scintigraphic evidence of myocardial infarction/scar. Recommendations: Aggressive risk factor modification, and treating the underlying co- morbidities , including aggressive treatment of coronary artery disease, MTDD
== END 2017-10-25 16:04 | disposition home or self-care (01) ==
LOC: ER 04:07 → EH 05:57 → 4S 20:43
PROVIDERS: ADMIT Internal Medicine; ATTEND Internal Medicine
DX: R07.9 Chest pain, unspecified (principal); I25.10 Atherosclerotic heart disease of native coronary artery without angina pectoris; F41.9 Anxiety disorder, unspecified; E78.5 Hyperlipidemia, unspecified; I10 Essential (primary) hypertension; R00.1 Bradycardia, unspecified; E03.9 Hypothyroidism, unspecified; R06.02 Shortness of breath; I25.2 Old myocardial infarction; Z95.5 Presence of coronary angioplasty implant and graft; Z90.49 Acquired absence of other specified parts of digestive tract; Z87.891 Personal history of nicotine dependence; Z82.49 Family history of ischemic heart disease and other diseases of the circulatory system; Z79.02 Long term (current) use of antithrombotics/antiplatelets; Z88.5 Allergy status to narcotic agent
CPT/HCPCS: 93005; 99285; 96374; 36415; 85025; 80053; 84484; 93017; 71045; 78452; 93010; A9500; J2785; J1885; J1650 ×2; J2060; J3490 ×2; Q9969

== ENCOUNTER 2020-04-17 16:21 | Emergency (ER) | payer BC ==
--- NOTE | 2020-04-17 16:56 | ER Document Report ---
ED Medical Screen (RME) - General Chief Complaint: Breathing Difficulty Stated Complaint: BREATHING TROUBLE/POSSIBLE LOW O2 Time Seen by Provider: 04/17/20 16:51 Primary Care Provider: JOHN POOLE FNP [Primary Care Provider] - Follow up as needed Mode of Arrival: Ambulatory Information source: Patient Notes: 60-year-old female presents to ED for complaint of shortness of breath x3 weeks but much worse today. She does not have any history of COPD CHF asthma or bronchitis. She does have a history of heart attacks. She states she does have 2 cardiac stents. States she has had 5 cardiac caths. We will get blood urine EKG chest x-ray as well as the Covid testing. I have greeted and performed a rapid initial assessment of this patient. A comprehensive ED assessment and evaluation of the patient, analysis of test results and completion of medical decision making process will be conducted by an additional ED providers. TRAVEL OUTSIDE OF THE [place] IN LAST 30 DAYS: No - Related Data Allergies/Adverse Reactions: azithromycin [From Zithromax] Allergy (Intermediate, Verified 04/17/20 16:52) Penicillins Allergy (Intermediate, Verified 04/17/20 16:52) celery Allergy (Verified 04/17/20 16:52) morphine Adverse Reaction (Verified 04/17/20 16:52) narcotics Allergy (Intermediate, Uncoded 04/17/20 16:52) Past Medical History - Past Medical History Cardiac Medical History: Reports: Hx Coronary Artery Disease, Hx Heart Attack - [place] x6, HAS 2 STENTS, Hx Hypercholesterolemia, Hx Hypertension Pulmonary Medical History: Reports: Hx Pneumonia Denies: Hx Asthma, Hx Bronchitis, Hx COPD, Hx Tuberculosis Neurological Medical History: Denies: Hx Cerebrovascular Accident, Hx Seizures Endocrine Medical History: Reports: Hx Hypothyroidism Renal/ Medical History: Reports: Hx Ovarian Cysts. Denies: Hx Peritoneal Dialysis GI Medical History: Reports: Hx Ulcer Musculoskeltal Medical History: Denies Hx Arthritis Psychiatric Medical History: Denies: Hx Depression Traumatic Medical History: Reports: Hx Fractures - Right wrist. Past Surgical History: Reports: Hx Appendectomy, Hx Cardiac Catheterization, Hx Cardiac Surgery - Cardiac stents x2, 3 years ago., Hx Hysterectomy. Denies: Hx Pacemaker - Immunizations Hx Diphtheria, Pertussis, Tetanus Vaccination: Yes Physical Exam - Vital signs Vitals: Temp Pulse Resp BP Pulse Ox 99.0 F 77 18 152/82 H 98 04/17/20 16:25 04/17/20 16:25 04/17/20 16:25 04/17/20 16:25 04/17/20 16:25 Course - Vital Signs Vital signs: Temp Pulse Resp BP Pulse Ox 99.0 F 77 18 152/82 H 98 04/17/20 16:25 04/17/20 16:25 04/17/20 16:25 04/17/20 16:25 04/17/20 16:25 Doctor's Discharge - Discharge Referrals: JOHN POOLE FNP [Primary Care Provider] - Follow up as needed
[2020-04-17 18:08] LABS: ABSOLUTE EOSINOPHILS # (AUTO) 0.2 10^3/uL (0.0-0.6); ABSOLUTE LYMPHOCYTES (AUTO) 1.5 10^3/uL (0.5-4.7); ABSOLUTE MONOCYTES (AUTO) 0.6 10^3/uL (0.1-1.4); ABSOLUTE NEUT (AUTO) 5.7 10^3/uL (1.7-8.2); BASOPHILS % (AUTO) 0.3 % (0-2); EOSINOPHILS % (AUTO) 2.5 % (0-6); HEMATOCRIT 38.1 % (36.0-47.0); HEMOGLOBIN 13.1 g/dL (12.0-15.5); LYMPHOCYTES % (AUTO) 19.2 % (13-45); MEAN CORPUSCULAR HEMOGLOBIN 30.2 pg (27.0-33.4); MEAN CORPUSCULAR HGB CONC 34.5 g/dL (32.0-36.0); MEAN CORPUSCULAR VOLUME 88 fl (80-97); PLATELET COUNT 208 10^3/uL (150-450); RED BLOOD COUNT 4.35 10^6/uL (3.72-5.28); RED CELL DISTRIBUTION WIDTH 13.1 % (11.5-14.0); TOTAL CELLS COUNTED % (AUTO) 100 %
--- NOTE | 2020-04-17 18:20 | RADIOLOGY REPORT (SQ) ---
EXAM DESCRIPTION: CHEST SINGLE VIEW IMAGES COMPLETED DATE/TIME: 04/17/2020 6:07 pm REASON FOR STUDY: Chest tightness short of breath COMPARISON: None. NUMBER OF VIEWS: One view. TECHNIQUE: Single frontal radiographic view of the chest acquired. LIMITATIONS: None. FINDINGS: LUNGS AND PLEURA: No opacities, masses or pneumothorax. No pleural effusion. MEDIASTINUM AND HILAR STRUCTURES: No masses. Contour normal. HEART AND VASCULAR STRUCTURES: Heart normal in size. Normal vasculature. BONES: No acute findings. HARDWARE: None in the chest. OTHER: No other significant finding. IMPRESSION: NO SIGNIFICANT RADIOGRAPHIC FINDING IN THE CHEST. TECHNICAL DOCUMENTATION: JOB ID: [id number] 2010 [employer]- All Rights Reserved Reading location - IP/workstation name: [email or web address]
[2020-04-17 18:27] LABS: ALBUMIN 4.4 g/dL (3.5-5.0); ALKALINE PHOSPHATASE 81 U/L (38-126); ANION GAP 6 (5-19); ASPARTATE AMINO TRANSFERASE 23 U/L (14-36); BILIRUBIN,TOTAL 0.7 mg/dL (0.2-1.3); BLOOD UREA NITROGEN 17 mg/dL (7-20); CALCIUM 9.6 mg/dL (8.4-10.2); CARBON DIOXIDE 30 mmol/L (22-30); CHLORIDE 104 mmol/L (98-107); GLUCOSE 94 mg/dL (75-110); POTASSIUM 3.8 mmol/L (3.6-5.0); TOTAL PROTEIN 6.8 g/dL (6.3-8.2)
--- NOTE | 2020-04-17 18:56 | EKG REPORT ---
SEVERITY:- OTHERWISE NORMAL ECG - SINUS RHYTHM BORDERLINE LEFT AXIS DEVIATION : Confirmed by: Guido Yao MD 17-Apr-2020 18:55:17
--- NOTE | 2020-04-17 19:23 | ER Document Report ---
ED Respiratory Problem - General Chief Complaint: Respiratory Distress Stated Complaint: BREATHING TROUBLE/POSSIBLE LOW O2 Time Seen by Provider: 04/17/20 16:51 Primary Care Provider: JOHN POOLE FNP [NURSE PRACTITIONER] - Follow up as needed Mode of Arrival: Ambulatory Notes: This 60-year-old woman presents with planes shortness of breath, fatigue and feeling tired for the past 3 weeks. She denies fever, productive cough or associated nausea or vomiting. Has an extensive cardiac history with [place] x6 with 2 stents and cardiac cath x5. She denies chest pain. She does complain of shortness of breath and fatigue. TRAVEL OUTSIDE OF THE [place] IN LAST 30 DAYS: No - Related Data Allergies/Adverse Reactions: azithromycin [From Zithromax] Allergy (Intermediate, Verified 04/17/20 16:52) Penicillins Allergy (Intermediate, Verified 04/17/20 16:52) celery Allergy (Verified 04/17/20 16:52) morphine Adverse Reaction (Verified 04/17/20 16:52) narcotics Allergy (Intermediate, Uncoded 04/17/20 16:52) Home Medications: levothyroxin. amlodipine. lansoprazole. lisinopril. clopi dogrel. isosorb mono. vitamin c. tumeric. paroxetine. zyrtec. magnesium. rosuvastatin Past Medical History - General Information source: Patient - Social History Smoking Status: Never Smoker Chew tobacco use (# tins/day): No Frequency of alcohol use: Occasional Drug Abuse: None Family History: Reviewed & Not Pertinent, CAD, Hypertension Patient has homicidal ideation: No - Past Medical History Cardiac Medical History: Reports: Hx Coronary Artery Disease, Hx Heart Attack - [place] x6, HAS 2 STENTS, Hx Hypercholesterolemia, Hx Hypertension Pulmonary Medical History: Reports: Hx Pneumonia Denies: Hx Asthma, Hx Bronchitis, Hx COPD, Hx Tuberculosis Neurological Medical History: Denies: Hx Cerebrovascular Accident, Hx Seizures Endocrine Medical History: Reports: Hx Hypothyroidism Renal/ Medical History: Reports: Hx Ovarian Cysts. Denies: Hx Peritoneal Dialysis GI Medical History: Reports: Hx Ulcer Musculoskeletal Medical History: Denies Hx Arthritis Psychiatric Medical History: Denies: Hx Depression Traumatic Medical History: Reports: Hx Fractures - Right wrist. Past Surgical History: Reports: Hx Appendectomy, Hx Cardiac Catheterization, Hx Cardiac Surgery - Cardiac stents x2, 3 years ago., Hx Hysterectomy. Denies: Hx Pacemaker - Immunizations Hx Diphtheria, Pertussis, Tetanus Vaccination: Yes Review of Systems - Review of Systems Notes: Constitutional: Generalized weakness HENT: Negative for sore throat. Eyes: Negative for visual changes. Cardiovascular: Negative for chest pain. Respiratory: See HPI Gastrointestinal: Negative for abdominal pain, vomiting or diarrhea. Genitourinary: Negative for dysuria. Musculoskeletal: Negative for back pain. Skin: Negative for rash. Neurological: Negative for headaches, weakness or numbness. 10 point ROS negative except as marked above and in HPI. Physical Exam - Vital signs Vitals: Temp Pulse Resp BP Pulse Ox 99.0 F 77 18 152/82 H 98 04/17/20 16:25 04/17/20 16:25 04/17/20 16:25 04/17/20 16:25 04/17/20 16:25 - Notes Notes: PHYSICAL EXAMINATION: Physical Exam: General: Well-nourished well-developed 60-year-old woman in no acute distress HEENT: NC/AT, pupils equal round and reactive to light, MM moist,nares clear, oropharynx clear, airway patent Neck: supple, no adenopathy, no masses. Good range of motion Lungs: clear, no wheezing, no rales no rhonchi CVS: Regular rate and rhythm no murmur gallop or rub Abdomen: Soft, active, nontender, no masses, no hepatosplenomegaly Ext: No edema, clubbing or cyanosis. Neuro: Alert and responsive, moving all 4 extremities on command, cranial nerves intact, no focal findings Skin: Intact no open lesions, no rash PSYCH: Normal mood, normal affect. Course - Vital Signs Vital signs: Temp Pulse Resp BP Pulse Ox 99.0 F 77 18 152/82 H 100 04/17/20 16:25 04/17/20 16:25 04/17/20 16:25 04/17/20 16:25 04/17/20 17:59 - Laboratory Result Diagrams: 04/17/20 17:40 04/17/20 17:40 - Diagnostic Test Radiology reviewed: Image reviewed, Reports reviewed Radiology results interpreted by me: 04/17/20 19:23 Chest X-Ray 04/17/20 16:56 IMPRESSION: NO SIGNIFICANT RADIOGRAPHIC FINDING IN THE CHEST. Discharge - Discharge Clinical Impression: Suspected 2019 novel coronavirus infection Condition: Good Disposition: HOME, SELF-CARE Instructions: COVID-19 Guidance for Persons Under Investigation Additional Instructions: You were seen in the emergency department today with symptoms suggestive of the coronavirus. You will need to self quarantine until you receive the results of your tests and continue to use the vitamin D and zinc. You may use Tylenol or ibuprofen for muscle aches and pains and fever if needed. If your symptoms are worsening or if you have other concerns you may return to the emergency department for further evaluation and treatment HOME CARE INSTRUCTIONS & INFORMATION: Thank you for choosing us for your medical needs. We hope you're satisfied with the care you received. After you leave, you must properly care for your problem and, at the same time, observe its progress. Any condition can change. Some illnesses can change rapidly over hours or days. If your condition worsens, return to the Emergency Department or see your physician promptly. ABOUT YOUR X-RAYS AND EKG'S: If you had an EKG or X-rays taken, they have been read by the Emergency Physician. The X-rays and EKG's will also be read by a Radiologist or Filler Feeder within 24 hours. If discrepancies are noted, you will be notified by telephone. Please be certain the ED has a correct telephone number & address where you can be reached. Also, realize that some fractures or abnormalities do not show up on initial X-rays. If your symptoms continue, see your physician. ABOUT YOUR LABORATORY TEST: If you had laboratory tests, the results have been reviewed by the Emergency Physician. Some test results (for example cultures) may not be available for several days. You will be contacted if any test result shows you need additional treatment. Please be certain the ED has a correct telephone number and address where you can be reached. ABOUT YOUR MEDICATIONS: You will receive instructions on how to take your medi cine on the prescription label you receive. Additional information may be provided by the Pharmacy. If you have questions afterwards, call the ED for clarification or further instructions. Some prescribed medications may cause drowsiness. Do not perform tasks such as driving a car or operating machinery without consulting your Pharmacist. If you feel you need a refill of pain medication, your condition will need re-evaluation. Please do not call for a refill of any medication. ABOUT YOUR SIGNATURE: Signature of this document acknowledges to followin. Understanding that you received emergency treatment and that you may be released before al medical problems are known or treated. Please be certain the ED has a correct phone number & address where you can be reached. 2. Acknowledgement that you will arrange for follow-up care as recommended. 3. Authorization for the Emergency Physician to provide information to your follow-up Physician in order to maximize your care. AT ANY TIME, IF YOUR SYMPTOMS CHANGE SIGNIFICANTLY OR WORSEN OR YOU DEVELOP NEW SYMPTOMS, RETURN TO THE EMERGENCY DEPARTMENT IMMEDIATELY FOR RE-EVALUATION. OUR GOAL IS TO PROVIDE EXCELLENT MEDICAL CARE! WE HOPE THAT WE HAVE MET YOUR EXPECTATIONS DURING YOUR EMERGENCY DEPARTMENT VISIT AND THAT YOU FEEL YOU HAVE RECEIVED EXCELLENT CARE! Referrals: JOHN POOLE FNP [NURSE PRACTITIONER] - Follow up as needed
[2020-04-17 19:45] LABS: A TYPE INFLUENZA AG NEGATIVE (NEGATIVE); B INFLUENZA AG NEGATIVE (NEGATIVE)
[2020-04-17 20:03] VITALS: BP 135/88
== END 2020-04-17 20:08 | disposition home or self-care (01) ==
LOC: ER 16:21
DX: Z20.828 Contact with and (suspected) exposure to other viral communicable diseases (principal); R06.00 Dyspnea, unspecified; R06.02 Shortness of breath; I25.10 Atherosclerotic heart disease of native coronary artery without angina pectoris; E78.00 Pure hypercholesterolemia, unspecified; I10 Essential (primary) hypertension; I25.2 Old myocardial infarction
CPT/HCPCS: 93005; 99285; 36415; 85025; 80053; 84484; 87804; 71045; 93010; U0003; C9803; 87635